=== PATIENT | female | born 1980 | race Caucasian/White ===

== ENCOUNTER 2016-11-03 13:33 | Emergency (ER) | payer MEDICAID, OTHER ==
[2016-11-03 13:57] VITALS: RESP 20; TEMP 98
[2016-11-03 14:02] VITALS: BP 155/85; PULSE 86; O2SAT 98
== END 2016-11-03 14:46 | disposition home or self-care (01) | DRG 563 ==
LOC: ED 13:33
DX: S93.401A Sprain of unspecified ligament of right ankle, initial encounter (principal); X50.1XXA Overexertion from prolonged static or awkward postures, initial encounter
CPT/HCPCS: 73610; 73630; 99282

== ENCOUNTER 2017-02-15 23:15 | Emergency (ER) | payer SELFPAY ==
[2017-02-15 23:30] LABS: APPEARANCE,URINE Clear; BILIRUBIN,URINE NEGATIVE (NEGATIVE); COLOR,URINE Yellow; GLUCOSE, URINE (UA) NEGATIVE (NEGATIVE); KETONES,URINE NEGATIVE (NEGATIVE); LEUKOCYTE ESTERASE ,URINE 1+ (NEGATIVE); NITRATE,URINE NEGATIVE (NEGATIVE); OCCULT BLOOD,URINE NEGATIVE (NEG-TRACE); UROBILINOGEN,URINE 0.2 (0.2-1.0 EU)
[2017-02-15 23:34] VITALS: BP 124/84; PULSE 93; RESP 24; TEMP 98.6; O2SAT 97
[2017-02-15] MEDS ORDERED: CIPROFLOXACIN HCL 500 MG TAB PO SCH (23:45)
[2017-02-15 23:50] LABS: RBC,URINE 0-2 (0-3AV/HPF)
== END 2017-02-16 00:13 | disposition home or self-care (01) | DRG 690 ==
LOC: ED 23:15
DX: N39.0 Urinary tract infection, site not specified (principal)
CPT/HCPCS: 81001; 99282; 99284

== ENCOUNTER 2018-02-19 23:45 | Emergency (ER) | payer OTHER ==
[2018-02-19 23:52] VITALS: BP 122/85; PULSE 85; RESP 18; TEMP 98; O2SAT 98
== END 2018-02-20 00:41 | disposition home or self-care (01) | DRG 558 ==
LOC: ED 23:45
DX: M72.2 Plantar fascial fibromatosis (principal)
CPT/HCPCS: 73630; 99282; 99283